=== PATIENT | male | born 1955 | race Two or more races ===

== ENCOUNTER 2022-09-02 12:27 | Emergency (ER) | payer MEDICARE, MEDICAID ==
[~2022-09-02] VITALS: Ht 175.3 cm; Wt 77.0 kg
[2022-09-02] MEDS ORDERED: SODIUM CHLORIDE 0.9% 1,000 ML IV ONE (13:15)
[2022-09-02] MEDS ORDERED: LEVETIRACETAM 500MG PREMIX 100 ML IV ONE (13:15)
[2022-09-02 13:27] LABS: BASOPHILS % 0.7 % (0.0-2.0); EOSINOPHILS % 0.5 % (0.0-5.0); HEMATOCRIT. 47.8 % (42.0-52.0); HEMOGLOBIN. 16.2 g/dL (14.0-18.0); LYMPHOCYTES % 19.1 % (20.0-50.0); MEAN CORPUSCULAR HEMOGLOBIN 32.8 pg (28.0-32.0); MEAN CORPUSCULAR VOLUME 96.8 fL (80.0-94.0); MEAN PLATELET VOLUME 8.9 fl (7.4-10.4); MONOCYTES % 11.2 % (2.0-8.0); NEUTROPHILS % 68.5 % (40.0-76.0); PLATELET 123 x1000/uL (130-400); RED BLOOD CELL COUNT 4.94 mill/uL (4.7-6.1)
[2022-09-02 13:34] LABS: CHLORIDE 104 mEq/L (98-107)
[2022-09-02] MEDS ORDERED: KEPP500 MT (14:53)
[2022-09-03 14:56] VITALS: BP 105/64
== END 2022-09-03 16:46 | disposition short-term general hospital (02) ==
LOC: ER 12:27
DX: R56.9 Unspecified convulsions (principal); I48.91 Unspecified atrial fibrillation; E11.9 Type 2 diabetes mellitus without complications
CPT/HCPCS: 36415; 70450; 71045; 80053; 80165; 84484; 85025; 93005; 96365; 96366; 99285; J1953; J7030

== ENCOUNTER 2022-09-07 12:52 | Emergency (ER) | payer MEDICARE, MEDICAID ==
[~2022-09-07] VITALS: Ht 177.8 cm; Wt 89.0 kg
[~2022-09-07 12:52] MED LIST: KEPP500 MT
[2022-09-07] MEDS ORDERED: LEVETIRACETAM 500MG TABLET PO ONE (14:00)
[2022-09-07 17:39] LABS: BASOPHILS % 0.5 % (0.0-2.0); HEMATOCRIT. 41.8 % (42.0-52.0); HEMOGLOBIN. 14.1 g/dL (14.0-18.0); LYMPHOCYTES % 29.5 % (20.0-50.0); MEAN CORPUSCULAR HEMOGLOBIN 32.8 pg (28.0-32.0); MEAN CORPUSCULAR VOLUME 97.2 fL (80.0-94.0); MEAN PLATELET VOLUME 9.1 fl (7.4-10.4); MONOCYTES % 12.3 % (2.0-8.0); NEUTROPHILS % 55.7 % (40.0-76.0); PLATELET 103 x1000/uL (130-400); RED CELL DISTRIBUTION WIDTH 13.4 % (11.6-14.6)
[2022-09-07 17:51] LABS: CHLORIDE 106 mEq/L (98-107)
[2022-09-07 18:07] LABS: ETHANOL BLOOD < 10 mg/dL
[2022-09-08 02:00] VITALS: BP 123/69
== END 2022-09-08 06:13 ==
LOC: ER 12:52
DX: G40.909 Epilepsy, unspecified, not intractable, without status epilepticus (principal); R45.1 Restlessness and agitation; I48.91 Unspecified atrial fibrillation; D64.9 Anemia, unspecified; J44.9 Chronic obstructive pulmonary disease, unspecified; E11.9 Type 2 diabetes mellitus without complications; K21.9 Gastro-esophageal reflux disease without esophagitis; F25.9 Schizoaffective disorder, unspecified; F03.90 Unspecified dementia, unspecified severity, without behavioral disturbance, psychotic disturbance, mood disturbance, and anxiety; Z98.890 Other specified postprocedural states
CPT/HCPCS: 36415; 71045; 80053; 80165; 80185; 80320; 82962; 83880; 84443; 84484; 85025; 93005; 99285; G0480

== ENCOUNTER 2022-09-18 23:04 | Emergency (ER) | payer MEDICARE, MEDICAID ==
[~2022-09-18] VITALS: Ht 167.6 cm; Wt 68.0 kg
[2022-09-19] MEDS ORDERED: TETANUS, DIPHTHERIA, PERTUSSIS VAC/PF 0.5ML (>10YR OLD) IM ONE (02:15)
[2022-09-19] MEDS ORDERED: LEVETIRACETAM 500MG TABLET PO ONE (02:15)
[2022-09-19] MEDS ORDERED: LIDOCAINE HCL/EPINEPHRINE 1%-EPI 1:100,000 50 ML VIAL INFIL ONE (02:15)
[2022-09-19] MEDS ORDERED: BACITRACIN ZINC OINT UDPKT TOP ONE (05:45)
[2022-09-19] MEDS ORDERED: LIDOCAINE HCL/PF 1% 10 MG/ML 5ML VIAL INFIL ONE (05:45)
[2022-09-19 08:00] VITALS: BP 115/66
== END 2022-09-19 09:30 | disposition home or self-care (01) ==
LOC: ER 23:04
DX: S01.112A Laceration without foreign body of left eyelid and periocular area, initial encounter (principal); S06.0XAA Concussion with loss of consciousness status unknown, initial encounter; J44.9 Chronic obstructive pulmonary disease, unspecified; E11.9 Type 2 diabetes mellitus without complications; G40.909 Epilepsy, unspecified, not intractable, without status epilepticus; K21.9 Gastro-esophageal reflux disease without esophagitis; I48.91 Unspecified atrial fibrillation; W01.0XXA Fall on same level from slipping, tripping and stumbling without subsequent striking against object, initial encounter; Y93.89 Activity, other specified; Y92.128 Other place in nursing home as the place of occurrence of the external cause; Y99.8 Other external cause status
CPT/HCPCS: 12011; 70450; 72125; 90471; 90715; 99285; J3490

== ENCOUNTER 2023-04-27 16:38 | Emergency (ER) | payer MEDICARE, MEDICAID ==
[~2023-04-27] VITALS: Ht 177.8 cm; Wt 70.0 kg
[~2023-04-27 16:38] MED LIST changes: +ASPI-1406 PO; +DIVA-73 PO; +DOCU-150 PO; +FLUP10TA13 PO; +FURO40TA5 PO; +GABA-290 PO; +LEVE500T19 PO; +MIRT-90 PO; +MONT-39 PO; +PROT40 PO; +QUET400T12 PO; +TOPUD MT
[2023-04-27 16:50] VITALS: O2SAT 100
[2023-04-27 18:03] LABS: BASOPHILS % 0.5 % (0.0-2.0); EOSINOPHILS % 1.6 % (0.0-5.0); HEMATOCRIT. 34.3 % (42.0-52.0); HEMOGLOBIN. 11.5 g/dL (14.0-18.0); LYMPHOCYTES % 21.1 % (20.0-50.0); MEAN CORPUSCULAR HEMOGLOBIN 33.6 pg (28.0-32.0); MEAN CORPUSCULAR HGB CONC 33.6 g/dL (31.0-37.0); MEAN PLATELET VOLUME 9.5 fl (7.4-10.4); MONOCYTES % 12.6 % (2.0-8.0); NEUTROPHILS % 64.2 % (40.0-76.0); PLATELET 203 x1000/uL (130-400); RED BLOOD CELL COUNT 3.43 mill/uL (4.7-6.1); RED CELL DISTRIBUTION WIDTH 14.1 % (11.6-14.6); WHITE BLOOD COUNT 7.5 x1000/uL (4.5-11.0)
[2023-04-27 18:12] LABS: CHLORIDE 104 mEq/L (98-107); INDEX HEMOLYSI 1 (1-3); INDEX ICTERIC 1 (1-4); INDEX LIPEMIC 1 (1-3); POTASSIUM 3.7 mEq/L (3.5-5.1); SODIUM 138 mEq/L (136-145)
[2023-04-27 18:23] LABS: ALANINE AMINOTRANSFERASE 35 IU/L (13-61); ALBUMIN 2.7 g/dL (3.4-5.0); ASPARTATE AMINOTRANSFERASE 21 IU/L (15-37); BILIRUBIN TOTAL 0.4 mg/dL (0.1-1.0); CALCIUM 9.1 mg/dL (8.5-10.1); CARBON DIOXIDE 26 mEq/L (21-32); CREATININE 0.6 mg/dL (0.6-1.3); GLUCOSE 124 mg/dL (70-105); NT PRO B-TYPE NATRIURETIC PEP 231 pg/mL (5-125); PROTEIN TOTAL 7.4 g/dL (6.0-8.3); TROPONIN I HIGH SENSITIVITY 6 ng/L (<78); UREA NITROGEN BLOOD 28 mg/dL (7-21)
[2023-04-28 11:10] VITALS: BP 121/68; PULSE 87; RESP 16; TEMP 99.1
== END 2023-04-28 11:10 | disposition home or self-care (01) ==
LOC: ER 16:38
DX: M79.10 Myalgia, unspecified site (principal); K85.90 Acute pancreatitis without necrosis or infection, unspecified; I48.91 Unspecified atrial fibrillation; J44.9 Chronic obstructive pulmonary disease, unspecified; E11.9 Type 2 diabetes mellitus without complications; K21.9 Gastro-esophageal reflux disease without esophagitis; D64.9 Anemia, unspecified; Z79.899 Other long term (current) drug therapy
CPT/HCPCS: 36415; 80053; 83880; 84484; 85025; 93005; 99285

== ENCOUNTER 2023-04-28 20:10 | Emergency (ER) | payer MEDICARE, MEDICAID ==
[~2023-04-28] VITALS: Ht 162.6 cm; Wt 55.0 kg
[2023-04-28 20:12] VITALS: O2SAT 96
[2023-04-29 03:25] VITALS: BP 119/67; PULSE 112; RESP 20; TEMP 98.4
== END 2023-04-29 03:32 ==
LOC: ER 20:10
DX: S22.32XA Fracture of one rib, left side, initial encounter for closed fracture (principal); I48.91 Unspecified atrial fibrillation; J44.9 Chronic obstructive pulmonary disease, unspecified; E11.9 Type 2 diabetes mellitus without complications; D64.9 Anemia, unspecified; K21.9 Gastro-esophageal reflux disease without esophagitis; Z79.899 Other long term (current) drug therapy; W18.39XA Other fall on same level, initial encounter; Y93.89 Activity, other specified; Y92.89 Other specified places as the place of occurrence of the external cause; Y99.8 Other external cause status
CPT/HCPCS: 71045; 72170; 99284